=== PATIENT | female | born 1985 | race Caucasian/White ===

== ENCOUNTER 2018-11-27 21:02 | Emergency (ER) | payer OTHER ==
[~2018-11-27] VITALS: Ht 165.1 cm; Wt 74.8 kg
[2018-11-27 21:05] VITALS: Ht 165.1 cm; Wt 74.8 kg
[2018-11-27] MEDS ORDERED: CEPH-443 PO (23:33)
[2018-11-28] VITALS: BP 118/62; PULSE 77; RESP 16
[2018-11-28] MEDS ORDERED: CEPHALEXIN 500 MG CAP PO ONE
[2018-11-28] MEDS ORDERED: PREN1CAP31 PO (00:03)
--- NOTE | 2018-11-28 00:53 | ERD ---
ER Documentation Chief Complaint Chief Complaint diffuse ab pain x 2 days w/feeling of bloatness HPI History of Present Illness: 33-year-old female who denies a past medical history coming in today due to complaint of diffuse abdominal pain to present for 2 days. Patient also reports feeling of bloating starting yesterday. Patient reports having a hard time losing her weight after delivering a baby 9 months ago. Associated symptoms include headache. Reports that she is taking acetaminophen for her's pain in the past 2 days. Reports increased episodes of constipation since delivery of her child, last bowel movement yesterday. Patient currently breast-feeding. At home pharmacological/nonpharmacological treatment for symptoms: Denies Denies social concerns; Denies recent foreign travel ROS All systems reviewed and are negative except as per history of present illness. Medications Home Meds Active Scripts 118/Iron/Folate 6/Dha ([facility] Softgel) 1 Each Capsule, 1 EACH PO DAILY, #30 CAP Prov:LEIGH ANN MARTI V COLLEGE PRESIDENT 11/28/18 Cephalexin* (Keflex*) 500 Mg Capsule, 500 MG PO Q12 for URINE INFECTION, #14 CAP Prov:LEIGH ANN MARTI V COLLEGE PRESIDENT 11/27/18 Allergies Allergies: Coded Allergies: No Known Allergy (Unverified , 11/27/18) PMhx/Soc Medical and Surgical Hx: pt denies Medical Hx, pt denies Surgical Hx Hx Alcohol Use: No Hx Substance Use: No Hx Tobacco Use: No Smoking Status: Never smoker FmHx Family History: diabetes Physical Exam Vitals Vital Signs Date Temp Pulse Resp B/P (MAP) Pulse Ox O2 O2 Flow FiO2 Time Delivery Rate 11/28/18 98.3 77 16 118/62 98 Room Air 00:00 (80) 11/27/18 98.4 80 18 115/61 98 21:05 (79) Physical Exam Const: No acute distress, afebrile Head: Atraumatic Eyes: Normal Conjunctiva ENT: Normal External Ears, Nose and Mouth. Neck: Full range of motion. No meningismus. Resp: Clear to auscultation bilaterally Cardio: Regular rate and rhythm, no murmurs Abd: Soft, non tender, non distended. No guarding, no masses, no rigidity. Patient is gravid, firm in uterine area. Skin: No petechiae or rashes Back: No midline or flank tenderness Ext: No cyanosis, or edema Neur: Awake and alert x3, speaking in clear sentences, no focal deficits or facial asymmetry Psych: Normal Mood and Affect Result Diagram: 11/27/182224 Results 24 hrs Laboratory Tests Test 11/27/18 22:04 11/27/18 22:05 11/27/18 22:25 11/27/18 22:26 Bedside Urine pH 6.5 (LAB) Bedside Urine 1+ Protein (LAB) Bedside Urine Negative Glucose (UA) Bedside Urine Trace Ketones (LAB) Bedside Urine Negative Blood Bedside Urine Negative Nitrite (LAB) Bedside Urine Trace Leukocyte Estera se (L POC Beta HCG, POSITIVE Qualitative White Blood 11.0 10^3/ul Count Red Blood Count 3.89 10^6/ul Hemoglobin 12.1 g/dl Hematocrit 35.7 % Mean Corpuscular 91.8 fl Volume Mean Corpuscular 31.1 pg Hemoglobin Mean Corpuscular 33.9 g/dl Hemoglobin Lyn nt Red Cell 13.6 % Distribution Width Platelet Count 196 10^3/UL Mean Platelet 12.0 fl Volume Immature 0.400 % Granulocytes % Neutrophils % 67.1 % Lymphocytes % 25.0 % Monocytes % 5.1 % Eosinophils % 2.2 % Basophils % 0.2 % Nucleated Red 0.0 /100WBC Blood Cells % Immature 0.040 10^3/ul Granulocytes # Neutrophils # 7.4 10^3/ul Lymphocytes # 2.8 10^3/ul Monocytes # 0.6 10^3/ul Eosinophils # 0.2 10^3/ul Basophils # 0.0 10^3/ul Nucleated Red 0.0 10^3/ul Blood Cells # Beta HCG, 73050.0 mIU/ml Quantitative Urine Color YELLOW Urine Clarity SLIGHTLY CLOUDY Urine pH 6.0 Urine Specific 1.034 [place] Urine Ketones NEGATIVE mg/dL Urine Nitrite NEGATIVE mg/dL Urine Bilirubin NEGATIVE mg/dL Urine NEGATIVE mg/dL Urobilinogen Urine Leukocyte 2+ Elaina/ul Esterase Urine 2 /HPF Microscopic RBC Urine 10 /HPF Microscopic WBC Urine Squamous FEW /HPF Epithelial Cells Urine Bacteria FEW /HPF Urine Hemoglobin NEGATIVE mg/dL Urine Glucose NEGATIVE mg/dL Urine Total NEGATIVE mg/dl Protein Current Medications Medications Dose Sig/Maribel Start Time Status Last (Trade) Ordered Route PRN Stop Time Admin Dose Reason Admin Cephalexin 500 mg ONCE ONCE 11/28/18 DC 11/27/18 (Keflex) PO 00:00 23:52 11/28/18 00:01 Procedures/MDM ED COURSE: ED course includes a thorough examination and history. The patient was stable throughout ED course. I kept the patient and/or family informed of laboratory and diagnostic imaging results throughout the ED course. LABS: Due to patient being gravid ordered POC hCG. Results are positive. OB work-up ordered. CBC: no e/o of systemic infection or severe anemia Beta hCG 32024 Urine with hemoconcentration, 2+ leukocyte Estrace, 10 WBCs, few bacteria Blood type/Rh is A+, no RhoGam indicated MEDICATIONS GIVEN IN ER: K flex (first dose of antibiotics for urinary tract infection given) patient tolerated medication well with no adverse reactions. Patient reported improvement in pain. DIAGNOSTIC IMAGING: Read by radiologist. OB ultrasound IMPRESSION: 1. Single live intrauterine gestation of 19 weeks 6 days gestational age by ultrasound dates. 2. The estimated date of delivery is 04/17/2019. RPTAT: QQ .Reji Johnson MD, MD Date Time Electronically viewed and signed by .Reji Johnson MD, MD on 11/28/2018 00:23 PROCEDURES: None. MEDICAL DECISION MAKING: Patient reassessment at 2210: X-rays canceled. Patient updated on positive . Will proceed with OB work-up. Low suspicion for life-threatening medical emergency. Her ATMOSPHERIC PHYSICIST emergency that requires hospitalization or immediate surgical intervention. Otherwise healthy patient presenting with constellation of symptoms likely representing incidental , urinary tract infection, abdominal pain during as characterized by history, physical exam findings, lab findings, imaging findings. Patient reassessment @ 2330: All results discussed. Referrals/AUTOMATIC CIGAR WRAPPER TENDER given. Patient hemodynamically stable. No respiratory distress, otherwise relatively well appearing and nontoxic. Disposition given. Patient educated on diagnoses, prescriptions, follow-up care, return precautions. Strict return precautions given for worsening condition; questions answered discharge. Patient verbalizes understanding of discharge instructions. PRESCRIPTIONS FOR HOME: vitamins, Keflex DISPOSITION: DISCHARGE At this time, patient is stable for discharge and outpatient management. I have instructed the patient to follow-up with his/her primary care physician in 1-2 days. I have discussed with the patient the possibility of needing to see a specialist for further workup and imaging studies if symptoms persist. I have instructed the patient to promptly return to the ER for any new or worsening sym ptoms including increased pain, fever, nausea, vomiting, weakness or LOC. The patient and/or family expressed understanding of and agreement with this plan. All questions were answered. Home care instructions were provided. DISCLAIMER: Inadvertent spelling and grammatical errors are likely due to EHR/dictation software use and do not reflect on the overall quality of patient care. Also, please note that the electronic time recorded on this note does not necessarily reflect the actual time of the patient encounter. Departure Diagnosis: Primary Impression: Incidental intrauterine Additional Impressions: Abdominal pain during in second trimester Urinary tract infection Condition: Stable Patient Instructions: Urinary Tract Infections in Women, : Your Second Trimester Changes, Abdominal Pain, Early Referrals: [facility] YOU HAVE RECEIVED A MEDICAL SCREENING EXAM AND THE RESULTS INDICATE THAT YOU DO NOT HAVE A CONDITION THAT REQUIRES URGENT TREATMENT IN THE EMERGENCY DEPARTMENT. FURTHER EVALUATION AND TREATMENT OF YOUR CONDITION CAN WAIT UNTIL YOU ARE SEEN IN YOUR DOCTORS OFFICE WITHIN THE NEXT 1-2 DAYS. IT IS YOUR RESPONSIBILITY TO MAKE AN APPOINTMENT FOR FOLOW-UP CARE. IF YOU HAVE A PRIMARY DOCTOR --you should call your primary doctor and schedule an appointment IF YOU DO NOT HAVE A PRIMARY DOCTOR YOU CAN CALL OUR PHYSICIAN REFERRAL HOTLINE AT IF YOU CAN NOT AFFORD TO SEE A PHYSICIAN YOU CAN CHOSE FROM THE FOLLOWING [facility] [address] [facility]. [facility] [address] [facility]. [facility] [address] [address]. [facility] [address] [facility]. [facility]. [address] [facility] YOU HAVE RECEIVED A MEDICAL SCREENING EXAM AND THE RESULTS INDICATE THAT YOU DO NOT HAVE A CONDITION THAT REQUIRES URGENT TREATMENT IN THE EMERGENCY DEPARTMENT. FURTHER EVALUATION AND TREATMENT OF YOUR CONDITION CAN WAIT UNTIL YOU ARE SEEN IN YOUR DOCTORS OFFICE WITHIN THE NEXT 1-2 DAYS. IT IS YOUR RESPONSIBILITY TO MAKE AN APPOINTMENT FOR FOLOW-UP CARE. IF YOU HAVE A PRIMARY DOCTOR --you should call your primary doctor and schedule and appointment IF YOU DO NOT HAVE A PRIMARY DOCTOR YOU CAN CALL OUR PHYSICIAN REFERRAL HOTLINE AT . IF YOU CAN NOT AFFORD TO SEE A PHYSICIAN YOU CAN CHOSE FROM THE FOLLOWING [facility] INSTITUTIONS: [facility] [address] [place] [address] [facility] [address] [place] [address] [facility] [address] [place] [address] ATMOSPHERIC PHYSIC[place] [address] [facility] [address] [place] [address] OFFICE FAX [facility] [address] [place] [address] [facility] [address] [place] [address] [address] [facility] [address] [facility] [address] [address] [facility] [address] [place] [address] [facility] [place] [address] [place] [address] [phone] [facility] [address] - [facility] [address], [facility] [address] [address] [address] [facility] [address], [facility] [address] [address] [address] [place] [address] Additional Instructions: Thank you very much for allowing us to participate in your care. Your health and safety is our top priority at [facility]. It is important to read all discharge instructions and education provided in your discharge packet. Call your ATMOSPHERIC PHYSICIST TOMORROW for an appointment during the next 2-4 days and bring all the information and medications prescribed. Have prescriptions filled and follow precisely the directions on the label. -Cephalexin IS an antibiotic; take this medication every day as listed on your prescription. You must complete the entire course of treatment that is listed on your prescription this is very important because it takes a certain number of days to kill the bacteria that is causing the infection. If the symptoms get worse and your provider is unavailable, return to the Emergency Department immediately. LEIGH ANN MARTI NP Nov 28, 2018 00:53
== END 2018-11-28 00:07 | disposition home or self-care (01) ==
LOC: FTE 21:02
DX: O23.42 Unspecified infection of urinary tract in pregnancy, second trimester (principal); Z3A.19 19 weeks gestation of pregnancy
CPT/HCPCS: 36415; 76805; 81001; 81025; 84702; 85025; 86900; 86901; Z7502; Z7610; 81003